=== PATIENT | female | born 1950 | race African-American/Black ===

== ENCOUNTER 2017-07-09 10:57 | Inpatient (IN) | payer MEDICARE, MEDICAID ==
--- NOTE | 2017-07-08 19:35 | NUR ---
PT. FOUND AWAKE, ALERT, ORIENTED X 3. NO DISTRESS NOTED. PT. REPORTS BEING "TIRED". DENIES COMPLAINTS OF PAIN OR NEED. PT. DOES STATE THAT THIS RN "COLONGE" IS BOTHER HER AND MAKING HER SOB. PER. PT. REQUEST, INTERACTION IS LIMITED DUE TO HER NOT BEING ABLE TO TOLERATE THIS WRITERS SMELL. BP/HR STABLE. BLOOD TRANSFUSION CONTINUES AT THIS TIME. PT. REMAINS AFEBRILE. NO EDEMA NOTED. LUNGS CLEAR TO AUSCULTATION, BUT PT. WOULD NOT TAKE DEEP BREATH WHEN AUSCULTATION. PULSES 2+ THROUGHOUT. PT. OFFERED DUONEB AT THIS TIME AND PT. AGREES. RT. CALLED.
[~2017-07-09] VITALS: Ht 152.4 cm; Wt 71.4 kg
[2017-07-09] VITALS (26 sets, daily range): BP systolic 86–109; BP diastolic 43–62
[~2017-07-09 10:57] MED LIST: ALLEGRA-D 2424 HOUR PO; ALLOPURINOL100 MG PO; AMLOD/BENAZP1 CA2 PO; AMLODIPINE BESY PO; DEPO-MEDROL40 MG/ML IJ; DICLOFENAC75 MG PO; DUONEB IN; FLEXERIL PO; FLEXERIL10 MG PO; FLEXERIL5 MG PO; FLONASE SPRAY50 MC1; FLOVENT HFA44 MCG IN; HYDROCHLORO25 MG/TAB PO; IPRATROPIUM BROMIDE/ IN; LORTAB 10-325 M1 TAB PO; LORTAB 7.5 PO; LORTAB 7.57.5 MG PO; MEDDOSEPAK OR; MEDDOSEPAK PO; MIRAPEX0.5 MG PO; PREDNISONE20 MG PO; PROBENECID/COLC1 TAB PO; PROVENTIL HFA IN; ROBITUSSIN AC10 ML PO; TIZANIDINE2 MG PO; TIZANIDINE4 MG PO; TRAMADOL HCL50 MG PO; ULTRAM50 MG PO; ZPAK PO
--- NOTE | 2017-07-09 11:06 | NUR ---
female pt received to ICU bed 2 via wc accompanied by family in stable condition; direct admission; pt offers no complaints; per pt, sent by Dr Escobar for anemia; admission assessment completed at this time; pt alert and oriented; denies pain; no n/v noted; resp even and unlabored; lungs clear throughout; skin color wnl; o2 per nc at 3L; o2 sat 100%; hr reg; strong pulses; no edema noted; sr on monitor; abd soft with bs present; pt reports bm 07/08/17; pt denies black tarry stools; admits to voiding without pain or burning; no urine to inspect at this time; adult brief cdi; bsc; plan of care/ transfusion explained; pt oriented to bed and call light system; call light within reach; will continue to monitor
--- NOTE | 2017-07-09 11:27 | NUR ---
consent obtained for blood transfusion; family remains at bedside
[2017-07-09 11:55] LABS: HEMATOCRIT 23.6 % (37.0-47.0); HEMOGLOBIN 7.4 g/dl (12.0-16.0); IMMATURE GRANULOCYTES 0.2 % (0.0-1.0); MEAN CELL VOLUME 97.5 fL CALC (80.0-100.0); MEAN CORPUSCULAR HGB 30.6 pG CALC (26.0-32.0); MEAN CORPUSCULAR HGB CONC 31.4 g/L CALC (32.0-36.0); NEUT# 2.42 thou/uL (2.00-7.15); RED BLOOD COUNT 2.42 mill/uL (4.20-5.60)
[2017-07-09 12:08] LABS: ALBUMIN 3.1 g/dL (3.2-5.0); ALKALINE PHOSPHATASE 95 u/l (38-126); ANION GAP 13 (6-22 (CALC)); BILIRUBIN, TOTAL 0.3 mg/dL (0.0-1.4); BUN 14 mg/dL (8-23); BUN/CREATININE RATIO 16 (12-20 (CALC)); CALCIUM 9.4 mg/dL (8.4-10.2); CARBON DIOXIDE 31 mmol/l (22-30); CHLORIDE 103 mmol/l (95-108); CREATININE 0.9 mg/dL (0.5-1.0); GFR > 60 ML/MIN (>=60 (CALC)); GFR FOR AFR.AMER. > 60 ML/MIN (>=60 (CALC)); GLUCOSE 88 mg/dL (82-115); POTASSIUM 3.1 mmol/l (3.5-5.1); SGOT/AST 16 u/l (9-36); SGPT/ALT 19 u/l (11-66); SODIUM 145 mmol/l (137-146); TOTAL PROTEIN 5.9 g/dL (6.3-8.2)
--- NOTE | 2017-07-09 12:14 | NUR ---
Dr Escobar called per rfp writer as per request; informed of pt's BP 90/50; updated on pt status; orders received and on chart
--- NOTE | 2017-07-09 13:16 | NUR ---
Dr Escobar notified per tech writer of low grade temp 99.2; orders received to premedicate; orders on chart
--- NOTE | 2017-07-09 13:36 | NUR ---
1st unit of prbc's verified at bedside; pt explained possible s/sx of transfusion reaction and to notify staff immed; prbc's infusing without complication; adjusto writer operator remains at bedside to monitor pt
--- NOTE | 2017-07-09 14:07 | NUR ---
awake in bed; RT at bedside; iv patent; prbc's infusing without complication; no redness or edema noted at sites; sr on monitor; no s/sx of transfusion reaction noted; o2 per nc; call light within reach; will continue to monitor
--- NOTE | 2017-07-09 14:47 | NUR ---
Dong, Pharm student at bedside for med rec
[2017-07-09] MEDS ORDERED: ZESTRIL5 MG PO (15:11)
[2017-07-09] MEDS ORDERED: ATORVASTATIN CA40 MG (15:12)
[2017-07-09] MEDS ORDERED: ASPIRINCHW 81MG PO (15:13)
[2017-07-09] MEDS ORDERED: COREG3.125 MG PO (15:14)
--- NOTE | 2017-07-09 16:07 | NUR ---
1st unit of prbc's completed; iv flushed and patent; no redness or edema noted; bloos tubing changed out; o2 per nc; sr on monitor; pt offers no complaints; call light within reach; will continue to monitor
--- NOTE | 2017-07-09 16:25 | NUR ---
1625- pt transported to xray dept via wc with portable o2 accompanied by this health technical writer in stable condition 1640- pt returned to unit in stable condition; monitoring attachments reconnected; will continue to monitor
--- NOTE | 2017-07-09 17:09 | NUR ---
2nd unit or prbc's verified at bedside as per protocol; iv patent; pt explained to notify staff immed of s/sx of reaction; possible s/sx of reaction explained; sr on monitor; o2 per nc; call light within reach; will continue to monitor
[2017-07-09 17:13] LABS: URINE BILIRUBIN - DIPSTICK NEGATIVE (NEGATIVE); URINE BLOOD DIPSTICK TRACE-INTACT (NEGATIVE); URINE COLOR YELLOW; URINE GLUCOSE - DIPSTICK NEGATIVE (NEGATIVE); URINE KETONE NEGATIVE (NEGATIVE); URINE LEUK ESTERASE NEGATIVE (NEGATIVE); URINE NITRITE - DIPSTICK NEGATIVE (Negative); URINE PH 6.5 (4.5-8.0); URINE PROTEIN - DIPSTICK NEGATIVE (NEG-TRACE); URINE SPECIFIC GRAVITY 1.015
[2017-07-09 17:16] LABS: URINE CLARITY CLEAR
--- NOTE | 2017-07-09 17:30 | NUR ---
Dr Escobar at bedside to discuss plan of care
--- NOTE | 2017-07-09 18:11 | NUR ---
pt awake in bed; no distress noted; pt offers no complaints; iv patent; prbc's infusing without complication; no s/sx of reaction noted; sr on monitor; o2 per nc; bed in lowest position; call light within reach
--- NOTE | 2017-07-09 18:50 | NUR ---
REPORT FROM Sean BEY, ASSUMED PT. CARE.
--- NOTE | 2017-07-09 20:00 | NUR ---
BLOOD TRANSFUSION IS COMPLETE. NO REACTIONS WERE NOTED. RT IS AT BEDSIDE AT THIS TIME WITH NEB TREATMENT IN PROGRESS.
--- NOTE | 2017-07-09 21:45 | NUR ---
PT. RESTING IN BED WITH EYES CLOSED. DENIES COMPLAINT OF PAIN OR NEED. PT. AWARE OF NEED FOR STOOL SPECIMEN TO BE SENT. HR REMAINS SINUS IN THE UPPER 50'S. BP STABLE AT THIS TIME. WILL CONTINUE TO ASSESS.
--- NOTE | 2017-07-09 23:31 | NUR ---
PROTONIX DRIP REPLACED AT THIS TIME. PT. REQUESTED NEB TREATMENT. NEB TREATMENT IN PROGRESS AT THIS TIME. PT. DENIES OTHER COMPLAINTS AT THIS TIME. CALL LIGHT REMAINS WITHIN REACH.
[2017-07-10] VITALS: BP 97/70
--- NOTE | 2017-07-10 00:54 | NUR ---
PT. OFFERED PAIN MEDICATION FOR HER RT. KNEE PAIN, BUT PT. REFUSED. STATES IT WOULD KEEP HER UP. PROVIDED WITH ORANGE JUICE PER HER REQUEST. ASSISTED TO BEDSIDE COMMODE AND BACK TO BED AT THIS TIME.
[2017-07-10 01:00] VITALS: BP 104/53
[2017-07-10 02:00] VITALS: BP 111/60
--- NOTE | 2017-07-10 02:19 | NUR ---
PT. RESTING WITH EYES CLOSED AND SNORING RESPIRATIONS. PT. EASILY AROUSABLE. BP STABLE AT THIS TIME AT 111/60. REMAINS SINUS ON THE MONITOR. RESPS REMAINS EVEN AND UNLABORED. 100% ON 3L VIA NC. IV FLUIDS CONTINUE TO INFUSE WITHOUT SX OF INFILTRATION OR EXTRAVASATION. CALL LIGHT REMAINS WITHIN REACH. WILL CONTINUE TO MONITOR.
[2017-07-10 04:00] VITALS: BP 95/44
--- NOTE | 2017-07-10 04:05 | NUR ---
LAB AT BEDSIDE AT THIS TIME. PT. ASSISTED TO BEDSIDE COMMODE. PT. PROVIDED STOOL SPECIMEN. SENT TO LAB FOR OCCULT BLOOD. PT. AMBULATORY WITH STEADY GAIT. TOLERATED WELL. BP AND HR REMAINS STABLE. CALL LIGHT REMAINS WITHIN REACH.
[2017-07-10 06:00] VITALS: BP 107/60
--- NOTE | 2017-07-10 06:10 | NUR ---
PT. RESTING IN BED IN NO DISTRESS WITH EYES CLOSED. IV FLUIDS CONTINUE TO INFUSE AT 75 CC/HR. VSS. BP/HR STABLE. DENIES COMPLAINTS OR NEED. CALL LIGHT REMAINS WITHIN REACH. WILL CONTINUE TO MONITOR.
[2017-07-10 06:11] LABS: HEMOGLOBIN 9.6 g/dl (12.0-16.0); MEAN CELL VOLUME 95.1 fL CALC (80.0-100.0); MEAN CORPUSCULAR HGB 31.5 pG CALC (26.0-32.0); MEAN CORPUSCULAR HGB CONC 33.1 g/L CALC (32.0-36.0); RED BLOOD COUNT 3.05 mill/uL (4.20-5.60); RED CELL DISTRI WIDTH 14.2 % (11.5-15.5)
[2017-07-10 06:35] LABS: ALBUMIN 2.8 g/dL (3.2-5.0); ALKALINE PHOSPHATASE 94 u/l (38-126); ANION GAP 14 (6-22 (CALC)); BILIRUBIN, TOTAL 1.2 mg/dL (0.0-1.4); BUN 11 mg/dL (8-23); BUN/CREATININE RATIO 14 (12-20 (CALC)); CALCIUM 9.1 mg/dL (8.4-10.2); CARBON DIOXIDE 30 mmol/l (22-30); CHLORIDE 104 mmol/l (95-108); CREATININE 0.8 mg/dL (0.5-1.0); GFR > 60 ML/MIN (>=60 (CALC)); GFR FOR AFR.AMER. > 60 ML/MIN (>=60 (CALC)); GLUCOSE 85 mg/dL (82-115); POTASSIUM 3.7 mmol/l (3.5-5.1); SGOT/AST 16 u/l (9-36); SGPT/ALT 18 u/l (11-66); SODIUM 144 mmol/l (137-146); TOTAL PROTEIN 5.5 g/dL (6.3-8.2)
--- NOTE | 2017-07-10 07:15 | NUR ---
pt awake in bed; no distress noted; assessment completed at this time; pt alert and oriented; complaints of pain to knees; pain med offered with refusal; no n/v noted; resp even and unlabored; lungs coarse; skin color wnl; o2 per nc; finnish rubber loose cough noted; pt denies resp distress/sob; hr reg; strong pulses; no edema noted; sr on monitor; abd soft with bs present; pt reports bm this am; admits to voiding without pain or burning; no urine to inspect at this time; bsc; #20 in rh saline locked; #22 in lac patent with ivf infusing as per orders; no redness or edema noted at sites; plan of care/ prn meds explained; call light within reach; will continue to monitor
--- NOTE | 2017-07-10 07:40 | NUR ---
assist to recliner as per request; weight obtained
[2017-07-10 08:00] VITALS: BP 126/62
--- NOTE | 2017-07-10 08:05 | NUR ---
Dr Escobar at bedside to discuss plan of care
--- NOTE | 2017-07-10 08:20 | NUR ---
awake; remains up to recliner; no distress noted; pt offers no complaints; iv patent; no redness or edema noted at site; sr on monitor; call light within reach; will continue to monitor
--- NOTE | 2017-07-10 09:04 | NUR ---
discharge instructions reviewed with pt; portable phone provided for pt to call for ride
--- NOTE | 2017-07-10 10:07 | NUR ---
awake in recliner; no distress noted; sr on monitor; o2 per nc; pt offers no complaints; call light within reach; will continue to monitor
--- NOTE | 2017-07-10 10:31 | NUR ---
Discharge instructions given. Patient verbalizes understanding of same. Discharged in stable condition via Wheelchair to Home with family. All belongings sent with pt.
== END 2017-07-10 10:31 | disposition home or self-care (01) | DRG 812 ==
LOC: ICU 10:57
PROVIDERS: ADMIT Internal Medicine Geriatric Medicine; ATTEND Internal Medicine Geriatric Medicine
PROC: 30233N1 Transfusion of Nonautologous Red Blood Cells into Peripheral Vein, Percutaneous Approach (ICD-10-PCS; principal; 2017-07-09)
PROC: 30233N1 Transfusion of Nonautologous Red Blood Cells into Peripheral Vein, Percutaneous Approach (ICD-10-PCS; 2017-07-09)
DX: D64.9 Anemia, unspecified (principal); I12.9 Hypertensive chronic kidney disease with stage 1 through stage 4 chronic kidney disease, or unspecified chronic kidney disease; N18.9 Chronic kidney disease, unspecified; J44.9 Chronic obstructive pulmonary disease, unspecified; E03.9 Hypothyroidism, unspecified; E78.5 Hyperlipidemia, unspecified; M19.90 Unspecified osteoarthritis, unspecified site; I25.10 Atherosclerotic heart disease of native coronary artery without angina pectoris; M85.80 Other specified disorders of bone density and structure, unspecified site
CPT/HCPCS: P9016; S0164